=== PATIENT | male | born 1995 | race Hispanic/Latino ===

== ENCOUNTER → 2023-05-18 | Emergency (ER) | payer BC ==
[~2023-05-18] MED LIST: FAMOTIDINE 20 MG/2 ML VIAL IV ONE; MAGNES/ALUMIN/SIMET 30ML UCUP ONE; NA CHLORIDE 0.9% 1,000 ML ONE
--- OUTSIDE RECORDS SUMMARY | 2023-05-18 01:05 | XMS REPORT | Continuity of Care Document ---
Author Name Unknown Address [address] [facility] [address] [place] [address] [facility] Address [address] [facility] [place] [address] Care Team Providers Care Airline Dispatcher Name Role Phone Doctor Unassigned, [place] Attending Clinician U [facility] Attending Clinician Unavailable Allergies, Adverse Reactions, Alerts Allergy Name Allergy Type Status Severity Reaction(s) Onset Date Inactive Date Treating Clinician Comments Source NO KNOWN ALLERGIE S Drug Class Active [facility] Social History Social Habit Start Date Stop Date Quantity Comments Source Sexual orientation U [facility] Exposure to SARS-CoV-2 (event) 2019-11-12 00:00:00 2019-12-12 08:56:00 Not sure [facility] Sex Assigned At 1995 00:00:00 1995 00:00:00 [facility] Smoking Status Start Date Stop Date Source Tobacco smoking consumption unknown [facility] Medications Ordered Medication Name Filled Medication Name Start Date Stop Date Current Medication? Ordering Clinician Indication Dosage Frequency Signature (SIG) Comments Components Source MOTRIN 600 MG ORAL TAB 12-28 00:00: 00 Yes Take 1 tablet four times daily for fever and pain. [facility] AMOXICILLIN -POT CLAVULANATE 500-125 MG ORAL TAB 12-28 00:00: 00 Yes Take one tablet every eight hours for ten days [facility] Encounters Start Date/Time End Date/Time Encounter Type Admission Type Attending Clinicians Care Facility Care Department Encounter ID Source 2019-12-13 00:00:00 2019-12-13 00:00:00 Patient Secure Msg Doctor Unassigned, [place] [facility] [id number] [facility] 2019-12-12 08:40:00 2019-12-12 08:40:00 Outpatient [facility] [id number] [facility]
[2023-05-18 02:16] LABS: Absolute Lymphocytes (CBC) 0.8 K/uL (0.7-4.9); Hematocrit 44.3 % (39.6-49.0); Lymphocytes % 8.9 % (15.3-44.8); MCV 83.5 fL (80-100); MPV 8.5 fL (7.6-11.3); Platelets 288 thou/uL (152-406)
[2023-05-18 02:33] LABS: Albumin 3.6 g/dL (3.4-5.0); Bilirubin Total 0.5 mg/dL (0.2-1.0); Potassium 3.4 mEq/L (3.5-5.1); Protein, Total 8.2 g/dL (6.4-8.2); Troponin High Sensitivity 4.1 pg/mL (<58.9)
--- NOTE | 2023-05-18 04:45 | EDPHYS ---
Physician Documentation [facility] Name: Darnell Brennan Age: 28 yrs Sex: Male : 1995 Arrival Date: 05/18/2023 Time: 01:02 Bed 4 Private MD: ED Physician Darren Aly HPI: 05/18 01:33 This 28 yrs old Male presents to ER via Unassigned with complaints of UPPER sp4 LEFT SIDE PAIN, Back Pain. 01:39 Pt is a 28 year old male who presents for left upper abd/lower chest pain that started kb at 2100 today. States he has had this pain several times in the past, normally after eating something bad for him, but it normally goes away after 2 hours or so. This pain is the same, but lasting longer than normal. Also reports he feels like the left upper abd swelling at times after eating. Denies n/v/d/f. Historical: - Allergies: 01:43 No Known Allergies; jb4 - PMHx: 01:43 None; jb4 - PSHx: 01:43 None; jb4 - Immunization history:: Adult Immunizations up to date. - Social history:: Smoking status: Patient denies any tobacco usage or history of. Patient uses alcohol, occasionally. - Family history:: not pertinent. ROS: 01:38 Constitutional: Negative for fever, chills, and weight loss, kb 01:38 Cardiovascular: Positive for chest pain, 01:38 Abdomen/GI: Positive for abdominal pain, 01:38 All other systems are negative, Exam: 01:38 Constitutional: This is a well developed, well nourished patient who is awake, alert, kb and in no acute distress. Head/Face: Normocephalic, atraumatic. ENT: Moist Mucous membranes Cardiovascular: Regular rate Respiratory: Respirations even and unlabored. No increased work of breathing. Talking in full sentences Skin: Warm, dry with normal turgor. Normal color. MS/ Extremity: Pulses equal, no cyanosis. Neurovascular intact. Full, normal range of motion. Neuro: Awake and alert, GCS 15, oriented to person, place, time, and situation. Moves all extremities. Normal gait. 01:38 Abdomen/GI: Inspection: abdomen appears normal, Bowel sounds: normal, Palpation: soft, in all quadrants, mild abdominal tenderness, in the left upper quadrant, 02:11 ECG was reviewed by the Attending Physician. EKG time 0 144 sp4 04:37 Eyes: Pupils equal round and reactive to light, extra-ocular motions intact. Lids and sp4 lashes normal. Conjunctiva and sclera are not injected. Cornea within normal limits. Periorbital areas with no swelling, redness, or edema. Neck: Trachea midline, no thyromegaly or masses palpated, and no cervical lymphadenopathy. Supple, full range of motion without nuchal rigidity, or vertebral point tenderness. Chest/axilla: Normal chest wall appearance and motion. Nontender with no deformity. No lesions are appreciated. Abdomen/GI: Soft, non-tender, with normal bowel sounds. No distension or tympany. No guarding or rebound. No evidence of tenderness throughout. Back: No spinal tenderness. No costovertebral tenderness. Psych: Awake, alert, with orientation to person, place and time. Behavior, mood, and affect are within normal limits Vital Signs: 01:39 BP 146 / 92; Pulse 100; Resp 16; Temp 98.2(O); Pulse Ox 99% on R/A; Weight 122.47 kg jb4 (R); Height 5 ft. 9 in. ; Pain 6/10; 02:15 BP 138 / 77; Pulse 78; Resp 17; Pulse Ox 98% on R/A; rv 05:02 BP 118 / 75; Pulse 73; Resp 17; Temp 98; Pulse Ox 99% on R/A; rv 01:39 Body Mass Index 39.87 (122.47 kg, 175.26 cm) jb4 01:39 Pain Scale: Adult jb4 Sandra Coma Score: 04:37 Eye Response: spontaneous(4). Motor Response: obeys commands(6). Verbal Response: sp4 oriented(5). Total: 15. 05:02 Eye Response: spontaneous(4). Motor Response: obeys commands(6). Verbal Response: rv oriented(5). Total: 15. MDM: 01:21 Patient medically screened. kb 01:38 Data reviewed: vital signs, nurses notes. kb 01:38 Differential diagnosis: gastritis, gastroesophageal reflux disease, non-specific abd kb pain, pancreatitis, Peptic Ulcer Disease, abnormal ekg. Transition of care: After a detail discussion of the patient's case, care is transferred to Darren Aly MD. 04:36 ED course: 1. Mild wall thickening of the gallbladder. No calcified gallstones sp4 identified. If there is concern for acute cholecystitis ultrasound could provide additional characterization. 2. Hepatomegaly and hepatic steatosis. 3. Mildly prominent mesenteric lymph nodes. These findings could be seen with nonspecific mesenteritis/enteritis.. 04:43 Differential diagnosis: Gastritis, Pancreatitis , cholecystitis. Consideration of sp4 Admission/Observation Escalation of care including admission/observation considered. ED course: Will be referred to Dr. Aleida riggs emergently for evaluation of the gallbladder. Will prescribe omeprazole daily. 05/18 01:26 Order name: CBC with Diff; Complete Time: 02:59 kb 05/18 01:26 Order name: CMP; Complete Time: 02:59 kb 05/18 01:26 Order name: Lipase; Complete Time: 02:59 kb 05/18 01:26 Order name: Troponin HS; Complete Time: 02:59 kb 05/18 01:26 Order name: XRAY Chest (1 view) kb 05/18 01:33 Order name: CT Chest, Abdomen, Pelvis - W/Contrast sp4 05/18 01:26 Order name: EKG; Complete Time: 01:26 kb 05/18 01:26 Order name: IV Saline Lock; Complete Time: 01:39 kb 05/18 01:26 Order name: Labs collected and sent; Complete Time: 01:39 kb 05/18 01:26 Order name: EKG - Nurse/Tech; Complete Time: 01:39 kb EC:11 Rate is 81 beats/min. Rhythm is regular, Normal Sinus Rhythm. QRS [address] is Normal. [place] sp4 interval is normal. QRS interval is normal. QT interval is normal. No Q waves. T waves are Normal. No ST changes noted. Clinical impression: Normal ECG. Interpreted by me. Reviewed by me. Administered Medications: 01:50 Drug: NS 0.9% IV 1000 ml IV at 1 bolus Per protocol; 1000 mL bolus Route: IV; Rate: 1 rv bolus; Site: right forearm; 05:03 Follow up: IV Status: Completed infusion; IV Intake: 1000ml rv 01:50 Drug: Famotidine IVP 20 mg IVP once; dilute with 10 mL 0.9% NaCl; give over 2 minutes rv Route: IVP; Site: right forearm; 05:03 Follow up: Response: No adverse reaction rv 01:50 Drug: GI Cocktail without - (Maalox PO 30 ml, Lidocaine Mucous Membrane 2 % 15 rv ml) PO once Route: PO; 05:03 Follow up: Response: No adverse reaction rv Disposition: 02:05 Co-signature as Attending Physician, Darren Aly MD I agree with the assessment sp4 and plan of care. I reviewed the patient's care provided by Advanced Practice Provider \T\ agree w/ the diagnosis \T\ care plan. I personally saw the pt \T\ performed a substantive portion of the visit, incldng all aspects of the (History/Exam/Medical Decision Making). Disposition Summary: 05/18/23 04:45 Discharge Ordered Problem: new sp4 Symptoms: have improved sp4 Condition: Stable sp4 Diagnosis - Upper abdominal pain, unspecified sp4 - Postprandial abdominal pain, left upper quadrant abdominal pain sp4 - acute gastritis sp4 Followup: sp4 - With: Bhavik Shin MD - When: 7 - 10 days - Reason: Recheck today's complaints Discharge Instructions: - Discharge Summary Sheet sp4 - Gastritis, Adult, [id number] sp4 Forms: - Patient Portal Instructions sp4 Prescriptions: - omeprazole 40 mg Oral capsule,delayed release (e.c.) - take 1 capsule ORAL route every morning; 30 capsule; Refills: 0, Product sp4 Selection Permitted Signatures: Dispatcher [employer] Magdalena Toribio FNP-C FNP-Andrew Vieira RN RN jb4 Jason Bey RN RN rv Potepalov, Sergey, MD MD sp4
--- NOTE | 2023-05-18 04:45 | ER ---
Nurse's Notes [facility] Name: Darnell Brennan Age: 28 yrs Sex: Male : 1995 Arrival Date: 05/18/2023 Time: 01:02 Bed 4 Private MD: Diagnosis: Upper abdominal pain, unspecified;Postprandial abdominal pain, left upper quadrant abdominal pain;acute gastritis Presentation: 05/18 01:39 Chief complaint: Patient states: I am having LUQ pain. [facility] ep[facility]astric [facility] and I always figured it was just heart burn and it goes away in a couple of hours. Tonight it has not gone away. Coronavirus screen: At this time, the client does not indicate any symptoms associated with coronavirus-19. Ebola Screen: No symptoms or risks identified at this time. Initial Sepsis Screen: Does the patient meet any 2 criteria? No. Patient's initial sepsis screen is negative. Does the patient have a suspected source of infection? No. Patient's initial sepsis screen is negative. Risk Assessment: Do you want to hurt yourself or someone else? Patient reports no desire to harm self or others. Onset of symptoms was May 18, 2023. Transition of care: patient was not received from another setting of care. 01:39 Method Of Arrival: [facility] 01:39 Acuity: DALE 3 jb4 Historical: - Allergies: 01:43 No Known Allergies; jb4 - PMHx: 01:43 None; jb4 - PSHx: 01:43 None; jb4 - Immunization history:: Adult Immunizations up to date. - Social history:: Smoking status: Patient denies any tobacco usage or history of. Patient uses alcohol, occasionally. - Family history:: not pertinent. Screenin:51 [facility] ED Fall Risk Assessment (Adult) History of falling in the last 3 months, rv including since admission No falls in past 3 months (0 pts) Score/Fall Risk Level 0 - 2 = Low Risk Oriented to surroundings, Maintained a safe environment, Educated pt \T\ family on fall prevention, incl call for assistance when getting out of bed, Assessed \T\ reinforced patient's understanding of fall precautions. Abuse screen: Denies threats or abuse. Denies injuries from another. Nutritional screening: No deficits noted. Tuberculosis screening: No symptoms or risk factors identified. Assessment: 01:51 General: Appears comfortable, Behavior is calm, cooperative. Pain: Complains of pain in rv left upper quadrant. Neuro: Level of Consciousness is awake, alert, obeys commands, Oriented to person, place, time, situation. Cardiovascular: Capillary refill < 3 seconds Patient's skin is warm and dry. Respiratory: Airway is patent Respiratory effort is even, unlabored, Breath sounds are clear bilaterally. GI: Abdomen is round non-distended. : No signs and/or symptoms were reported regarding the genitourinary system. Derm: Skin is intact. Vital Signs: 01:39 BP 146 / 92; Pulse 100; Resp 16; Temp 98.2(O); Pulse Ox 99% on R/A; Weight 122.47 kg jb4 (R); Height 5 ft. 9 in. ; Pain 6/10; 02:15 BP 138 / 77; Pulse 78; Resp 17; Pulse Ox 98% on R/A; rv 05:02 BP 118 / 75; Pulse 73; Resp 17; Temp 98; Pulse Ox 99% on R/A; rv 01:39 Body Mass Index 39.87 (122.47 kg, 175.26 cm) jb4 01:39 Pain Scale: Adult jb4 Sandra Coma Score: 04:37 Eye Response: spontaneous(4). Motor Response: obeys commands(6). Verbal Response: sp4 oriented(5). Total: 15. 05:02 Eye Response: spontaneous(4). Motor Response: obeys commands(6). Verbal Response: rv oriented(5). Total: 15. ED Course: 01:12 Patient arrived in ED. jj6 01:20 Magdalena Porras FNP-C is PHCP. kb 01:20 Darren Aly MD is Attending Physician. kb 01:35 Jason Bey RN is Primary Nurse. rv 01:43 Triage completed. jb4 01:43 Arm band placed on right wrist. jb4 01:50 XRAY Chest (1 view) In Process Unspecified. EDMS 01:51 Patient has correct armband on for positive identification. Client placed on continuous rv cardiac and pulse oximetry monitoring. NIBP monitoring applied. library monitor on. 01:51 No provider procedures requiring assistance completed. Inserted saline lock: 20 gauge rv in right forearm, using aseptic technique. Blood collected. 03:00 CT Chest, Abdomen, Pelvis - W/Contrast In Process Unspecified. EDMS 04:44 Bhavik Shin MD is Referral Physician. sp4 05:03 IV discontinued, intact, bleeding controlled, No redness/swelling at site. Pressure rv dressing applied. Administered Medications: 01:50 Drug: NS 0.9% IV 1000 ml IV at 1 bolus Per protocol; 1000 mL bolus Route: IV; Rate: 1 rv bolus; Site: right forearm; 05:03 Follow up: IV Status: Completed infusion; IV Intake: 1000ml rv 01:50 Drug: Famotidine IVP 20 mg IVP once; dilute with 10 mL 0.9% NaCl; give over 2 minutes rv Route: IVP; Site: right forearm; 05:03 Follow up: Response: No adverse reaction rv 01:50 Drug: GI Cocktail without - (Maalox PO 30 ml, Lidocaine Mucous Membrane 2 % 15 rv ml) PO once Route: PO; 05:03 Follow up: Response: No adverse reaction rv Medication: 01:51 VIS not applicable for this client. rv Intake: 05:03 IV: 1000ml; Total: 1000ml. rv Outcome: 04:45 Discharge ordered by MD. sp4 05:03 Discharged to home ambulatory, rv 05:03 Condition: good 05:03 Discharge instructions given to patient, Instructed on discharge instructions, follow up and referral plans. medication usage, Demonstrated understanding of instructions, follow-up care, medications, Prescriptions given X 1, 05:03 Patient left the ED. rv Signatures: Dispatcher [employer] EDNY Magdalena Porras, SUPPLY ROOM CLERK-C SUPPLY ROOM CLERK-Ckb Andrew Francois, RN RN jb4 Jason Bey, RN RN rv Ritu Lewis jj6 Darren Aly MD MD sp4
--- NOTE | 2023-05-18 11:51 | RAD REPORT ---
EXAM DESCRIPTION: CT - Chest Abdomen Pelvis W Cont - 05/18/2023 6:15 am CLINICAL HISTORY: CHEST PAIN COMPARISON: None Available. TECHNIQUE: CT of the chest, abdomen and pelvis performed following IV administration of iodinated co ntrast. This exam was performed according to our departmental dose-optimization program, which includ es automated exposure control, adjustment of the mA and/or kV according to patient size and/or use of iterative reconstruction technique. FINDINGS: Chest: Thyroid: No abnormalities of the visualized thyroid. Great Vessels: Great vessels have normal anatomic configuration. Thoracic Aorta: No abnormalities of the thoracic aorta identified. Pulmonary arteries: No central filling defects. Heart: No cardiomegaly, significant pericardial effusion, or coronary artery atherosclerosis Lymph Nodes: No enlarged mediastinal lymph nodes identified. Esophagus: No abnormalities of the esophagus identified Other: No additional findings. Lungs: No airspace opacities identified. Mild respiratory motion artifact. Mild elevation right hemid iaphragm. Pleura: No pleural effusion or pneumothorax. Trachea/Airways: No abnormalities of the visualized trachea or airways. Abdomen: Liver: Hepatomegaly and diffusely decreased density. Gallbladder: No calcified gallstones. Mild wall thickening of the gallbladder. Spleen, Pancreas, and Adrenal Glands: The spleen, pancreas, and adrenal glands are unremarkable. Kidneys: The kidneys have normal size and contour without evidence of solid mass or hydronephrosis. Vasculature: The aorta and IVC have normal caliber and position. The portal vein is patent. The pro ximal visceral and renal arteries are patent. Stomach: The stomach and duodenum have normal course. Other: No free intraperitoneal air. Mildly prominent mesenteric lymph nodes. Pelvis: Bladder: Urinary bladder is unremarkable. Bowel: No dilated loops of large or small bowel. Appendix: Normal appendix. Pelvis: Prostate is not enlarged. Bones: Multilevel degenerative change of the spine. IMPRESSION: 1. Mild wall thickening of the gallbladder. No calcified gallstones identified. If the re is concern for acute cholecystitis ultrasound could provide additional characterization. 2. Hepatomegaly and hepatic steatosis. 3. Mildly prominent mesenteric lymph nodes. These findings could be seen with nonspecific mesenteri tis/enteritis. Electronically signed by: Charly Salazar DO 05/18/2023 03:42 AM TICKET CLERK M Due to temporary technical issues with the PACS/Fluency reporting system, reports are being signed by the in house radiologists without review as a courtesy to insure prompt reporting. The interpreting radiologist is fully responsible for the content of the report.
--- NOTE | 2023-05-18 12:54 | EKG ---
Test Date: 2023-05-18 Test Time: 01:44:44 Crystallizer Operator: RV MEASUREMENT RESULTS: Intervals: Rate: 81 TX: 138 QRSD: 88 QT: 372 QTc: 432 [place]: P: 14 TX: 138 QRS: 80 T: 30 INTERPRETIVE STATEMENTS: Normal sinus rhythm Normal ECG No previous ECG available for comparison Electronically Signed On 05-18-23 12:52:24 POLYSOMNOGRAPHER by Floyd Barragan
--- NOTE | 2023-05-18 14:33 | RAD REPORT ---
EXAM DESCRIPTION: RAD - Chest Single View - 05/18/2023 1:49 am CLINICAL HISTORY: The patient is 28 years old and is Male; CHEST PAIN TECHNIQUE: Frontal view of the chest. COMPARISON: No relevant prior studies available. FINDINGS: LUNGS: There are low lung volumes. The lungs are clear. No consolidation. PLEURAL SPACE: Unremarkable. No pneumothorax. HEART: Unremarkable. No cardiomegaly. MEDIASTINUM: Unremarkable. Normal mediastinal contour. BONES/JOINTS: Unremarkable. No acute fracture. UPPER ABDOMEN: Unremarkable as visualized. IMPRESSION: No acute cardiopulmonary process. Electronically signed by: Sophia Obregon MD 05/18/2023 02:19 AM TRAFFIC ENGINEER Due to temporary technical issues with the PACS/Fluency reporting system, reports are being signed by the in house radiologists without review as a courtesy to insure prompt reporting. The interpreting radiologist is fully responsible for the content of the report.
[2023-05-19 10:00] VITALS: BP 118/75; TEMP 98; O2SAT 99
== END ==
LOC: ER 01:02
DX: K29.70 Gastritis, unspecified, without bleeding (principal)
CPT/HCPCS: 93005; 85025; 36415; 84484; 83690; 80053; 71260; 74177; 71045; Q9967; J7030

== ENCOUNTER 2024-05-01 07:44 | Inpatient (IN) | payer BC ==
[2024-05-01] MEDS ORDERED: FAMOTIDINE 20 MG/2 ML VIAL IV ONE (07:51)
[2024-05-01] MEDS ORDERED: ONDANSETRON 4 MG/2 ML VIAL ONE (07:51)
[2024-05-01] MEDS ORDERED: NA CHLORIDE 0.9% 1,000 ML ONE (07:52)
[2024-05-01 08:08] LABS: Absolute Lymphocytes (CBC) 1.5 K/uL (0.7-4.9); Absolute Monocytes 0.4 K/uL (0.1-1.3); Absolute Neutrophil 9.2 K/uL (1.8-8.0); Basophils % 0.4 % (0-1.3); Eosinophils % 0.1 % (0-4.4); Hematocrit 45.5 % (39.6-49.0); Hemoglobin 15.3 g/dL (13.6-17.9); Lymphocytes % 13.5 % (15.3-44.8); MCH 28.1 pg (27.0-35.0); MCHC 33.7 g/dL (32.0-36.0); MCV 83.3 fL (80-100); MPV 8.4 fL (7.6-11.3); Monocytes % 3.7 % (3.3-12.3); Neutrophils % 82.3 % (41.7-73.7); Nucleated Red Blood Cells % 0.1 % (0-0); Platelets 350 thou/uL (152-406); RBC Red Blood Cell Count 5.47 M/uL (4.33-5.43); Red Cell Distribution Width 13.5 % (12.1-15.2)
[2024-05-01 08:21] LABS: Albumin 3.9 g/dL (3.4-5.0); Albumin/Globulin Ratio 0.8 (1.1-1.8); Anion Gap 7.4 mEq/L (5.0-15.0); Bilirubin Total 0.4 mg/dL (0.2-1.0); Globulin 4.9 g/dL (2.3-3.5); Potassium 3.4 mEq/L (3.5-5.1); Protein, Total 8.8 g/dL (6.4-8.2)
[2024-05-01] MEDS ORDERED: MAGNES/ALUMIN/SIMET 30ML UCUP ONE (08:27)
[2024-05-01] MEDS ORDERED: LIDOCAINE VISCOUS 2% 10ML ORAL SOLN ONE (08:27)
--- NOTE | 2024-05-01 08:42 | RAD REPORT ---
EXAM: Right upper quadrant ultrasound. CLINICAL HISTORY: ABD PAIN COMPARISON: None. FINDINGS: Gallbladder: Extensive sludge and stones. Prominent stone is seen in the gallbladder neck. Bile ducts: No intrahepatic or extrahepatic biliary dilatation. Common bile duct measures 5 mm. Limited imaging of the liver shows no concerning finding. IMPRESSION: Extensive gallbladder sludge and stones is present.
[2024-05-01] MEDS ORDERED: NA CHLORIDE 0.9% 100 ML ONE (08:49)
[2024-05-01] MEDS ORDERED: MORPHINE 4 MG/ML SYR ONE (08:49)
[2024-05-01] MEDS ORDERED: PIPERACIL/TAZO 3.375 GM VIAL IV ONE (08:50)
--- NOTE | 2024-05-01 08:54 | ER ---
Nurse's Notes [facility] Name: Darnell Brennan Age: 29 yrs Sex: Male : 1995 Arrival Date: 05/01/2024 Time: 07:44 Bed 6 Private MD: Diagnosis: Abdominal pain, unspecified;Other cholelithiasis without obstruction Presentation: 05/01 07:47 Chief complaint: Patient states: N/V and abd pain that began last night. Pt states, "I ss have gallbladder issues, but it usually goes away.". Coronavirus screen: Client denies travel out of the [place] in the last 14 days. Ebola Screen: Patient denies exposure to infectious person. Patient denies travel to an Ebola-affected area in the 21 days before illness onset. Initial Sepsis Screen: Does the patient meet any 2 criteria? No. Patient's initial sepsis screen is negative. Does the patient have a suspected source of infection? No. Patient's initial sepsis screen is negative. Risk Assessment: Do you want to hurt yourself or someone else? Patient reports no desire to harm self or others. Onset of symptoms was April 30, 2024. 07:47 Method Of Arrival: Ambulatory ss 07:47 Acuity: DALE 3 ss Historical: - Allergies: 07:54 No Known Allergies; ss - Home Meds: 07:54 None [Active]; ss - PMHx: 07:54 hypertension; ss 07:55 "gallbladder issues"; ss - PSHx: 07:54 None; ss - Immunization history:: Client reports receiving the 2nd dose of the Covid vaccine. - Infectious Disease History:: Denies. - Social history:: Smoking status: Patient denies any tobacco usage or history of. - Family history:: not pertinent. - Hospitalizations: : No recent hospitalization is reported. Screenin:01 [facility] ED Fall Risk Assessment (Adult) History of falling in the last 3 months, iw including since admission No falls in past 3 months (0 pts) Confusion or Disorientation No (0 pts) Intoxicated or Sedated No (0 pts) Impaired Gait No (0 pts) Mobility Assist Device Used No (0 pt) Altered Elimination No (0 pt) Score/Fall Risk Level 0 - 2 = Low Risk Oriented to surroundings, Maintained a safe environment. Abuse screen: Denies threats or abuse. Denies injuries from another. Nutritional screening: No deficits noted. Tuberculosis screening: No symptoms or risk factors identified. Assessment: 08:00 General: Appears in no apparent distress. Behavior is calm, cooperative. Pain: iw Complains of pain in epigastric area Pain radiates to left upper quadrant Pain currently is 10 out of 10 on a pain scale. Neuro: Level of Consciousness is awake, alert, obeys commands, Oriented to person, place, time, situation, Moves all extremities. Full function. Cardiovascular: Patient's skin is warm and dry. Respiratory: Respiratory effort is even, unlabored, Respiratory pattern is regular. GI: Abd is soft X 4 quads Reports upper abdominal pain, nausea. Derm: Skin is intact, is healthy with good turgor. Musculoskeletal: Range of motion: intact in all extremities. 08:29 Reassessment: Patient appears in no apparent distress at this time. Patient and/or iw family updated on plan of care and expected duration. Pain level reassessed. Patient is alert, oriented x 3, equal unlabored respirations, skin warm/dry/pink. Vital Signs: 07:47 BP 173 / 109; Pulse 75; Resp 17; Temp 97.7(O); Pulse Ox 100% on R/A; Weight 113.4 kg; ss Height 5 ft. 9 in. ; Pain 9/10; 08:29 BP 164 / 106; Pulse 69; Resp 16; Pulse Ox 99% on R/A; iw 08:58 BP 150 / 85; Pulse 68; Resp 16; Pulse Ox 100% on R/A; Pain 9/10; iw 07:47 Body Mass Index 36.92 (113.40 kg, 175.26 cm) ss 07:47 Pain Scale: Adult ss 08:58 Pain Scale: Adult iw ED Course: 07:47 Patient arrived in ED. im 07:47 Bijan Kent MD is Attending Physician. rn 07:48 Shreya Kramer RN is Primary Nurse. iw 07:54 Triage completed. ss 07:55 Arm band placed on right wrist. ss 08:01 Initial lab(s) drawn, by me, sent to lab. Inserted saline lock: 20 gauge in right iw antecubital area, using aseptic technique. Blood collected. Flushed with 10 mL NS. 08:16 US Abdomen Limited In Process Unspecified. EDMS 08:53 Stephenie Chowdhury MD is Hospitalizing Provider. rn 09:12 Patient has correct armband on for positive identification. Provided Education on: need iw for admission. Client placed on continuous cardiac and pulse oximetry monitoring. NIBP monitoring applied. 11:09 No provider procedures requiring assistance completed. Patient admitted, IV remains in iw place. Administered Medications: 08:01 Drug: Famotidine IVP 20 mg IVP once; dilute with 10 mL 0.9% NaCl; give over 2 minutes iw Route: IVP; Site: right antecubital; 09:05 Follow up: Response: No adverse reaction; Pain is unchanged, physician notified iw 08:02 Drug: Ondansetron IVP 4 mg IVP once; over 2 minutes Route: IVP; Site: right antecubital;iw 09:23 Follow up: Response: No adverse reaction iw 08:29 Drug: GI Cocktail without - (Maalox PO 30 ml, Lidocaine Mucous Membrane 2 % 15 iw ml) PO once Route: PO; 09:30 Follow up: Response: No adverse reaction; Pain is unchanged, physician notified iw 08:58 Drug: morphine IVP or IV 4 mg IVP once over 4 mins Route: IVP; Infused Over: 4 mins; iw Site: right antecubital; 09:40 Follow up: Response: No adverse reaction; Pain is unchanged, physician notified iw 08:58 Drug: Piperacillin-Tazobactam IVPB 3.375 grams IVPB once over 60 mins; (mix in NS 100 iw mL) Route: IVPB; Infused Over: 60 mins; Site: right antecubital; 09:30 Follow up: IV Status: Completed infusion iw 09:43 Drug: HYDROmorphone IVP 1 mg IVP once Route: IVP; Site: right antecubital; iw 10:30 Follow up: Response: No adverse reaction; Pain is decreased iw Medication: 08:01 VIS not applicable for this client. iw Outcome: 08:54 Decision to Hospitalize by Provider. rn 11:09 Admitted to Med/surg accompanied by tech, via wheelchair, room 222, iw 11:09 Condition: good 11:09 Discharge instructions given to patient, Instructed on the need for admit, Demonstrated understanding of instructions, 11:10 Patient left the ED. iw Signatures: Dispatcher [employer] EDShreya Carrizales RN Bijan Holcomb MD MD rn Blanchard, [place], Namrata Peraza RN Corrections: (The following items were deleted from the chart) 07:55 07:54 PMHx: None; [facility]
--- NOTE | 2024-05-01 08:54 | EDPHYS ---
Physician Documentation [facility] Name: Darnell Brennan Age: 29 yrs Sex: Male : 1995 Arrival Date: 05/01/2024 Time: 07:44 Bed 6 Private MD: ED Physician Bijan Kent HPI: 05/01 08:07 This 29 yrs old Male presents to ER via Ambulatory with complaints of rn Abdominal Pain, Nausea/Vomiting. 08:07 The patient presents to the emergency department with nausea, vomiting, abdominal pain. rn Onset: The symptoms/episode began/occurred last night. Possible causes: unknown. The symptoms are aggravated by food , The symptoms are alleviated by nothing. Severity of symptoms: At their worst the symptoms were moderate in the emergency department the symptoms are unchanged. The patient has experienced similar episodes in the past. Patient reports epigastric abdominal pain associated with nausea and vomiting that began last night. Had Murray's yesterday. Reports gets this pain at least once a month and has had acid problems in the past. No fever or chills. No cough or shortness of breath. Told in the past that his gallbladder was "abnormal" but never followed up. Denies blood in stool or hematemesis.. Historical: - Allergies: 07:54 No Known Allergies; ss - Home Meds: 07:54 None [Active]; ss - PMHx: 07:54 hypertension; ss 07:55 "gallbladder issues"; ss - PSHx: 07:54 None; ss - Immunization history:: Client reports receiving the 2nd dose of the Covid vaccine. - Infectious Disease History:: Denies. - Social history:: Smoking status: Patient denies any tobacco usage or history of. - Family history:: not pertinent. - Hospitalizations: : No recent hospitalization is reported. ROS: 08:07 Constitutional: Negative for fever, chills, and weight loss, Cardiovascular: Negative rn for chest pain, palpitations, and edema, Respiratory: Negative for shortness of breath, cough, wheezing, and pleuritic chest pain, Abdomen/GI: Positive for nausea and vomiting with upper abdominal pain Back: Negative for injury and pain, MS/Extremity: Negative for injury and deformity, Skin: Negative for injury, rash, and discoloration, Neuro: Negative for headache, weakness, numbness, tingling, and seizure, Exam: 08:07 Constitutional: This is a well developed, well nourished patient who is awake, alert, rn and in no acute distress. Cardiovascular: Regular rate and rhythm. No pulse deficits. Respiratory: No increased work of breathing, no retractions or nasal flaring. Abdomen/GI: Soft, mild epigastric tenderness. No rebound or guarding. Negative Preston Vital Signs: 07:47 BP 173 / 109; Pulse 75; Resp 17; Temp 97.7(O); Pulse Ox 100% on R/A; Weight 113.4 kg; ss Height 5 ft. 9 in. ; Pain 9/10; 08:29 BP 164 / 106; Pulse 69; Resp 16; Pulse Ox 99% on R/A; iw 08:58 BP 150 / 85; Pulse 68; Resp 16; Pulse Ox 100% on R/A; Pain 9/10; iw 07:47 Body Mass Index 36.92 (113.40 kg, 175.26 cm) ss 07:47 Pain Scale: Adult ss 08:58 Pain Scale: Adult iw MDM: 07:47 Medical Screening Exam initiated rn 08:50 Differential diagnosis: Nonspecific abd pain, gastritis, cholecystitis, pancreatitis, rn viral gastroenteritis, gastroenteritis. Data reviewed: vital signs, nurses notes, lab test result(s), radiologic studies, ultrasound, and as a result, I will admit patient. Consideration of Admission/Observation Patient was admitted/placed on observation. Escalation of care including admission/observation considered. Counseling: I had a detailed discussion with the patient and/or guardian regarding the historical points, exam findings, and any diagnostic results supporting the discharge/admit diagnosis, lab results, radiology results, the need for further work-up and treatment in the hospital. Response to treatment: There is no appreciated change of the patient's symptoms at this time, and as a result, I will admit patient. ED course: Patient with cholelithiasis and sludge, no evidence of cholecystitis at this time but has elevated WBC and stone stuck in the neck. Normal LFTs and lipase. No indication for emergent GI intervention at this time. Called and left message to Dr. Ray. Will admit with antibiotics, n.p.o. and likely cholecystectomy.. 05/01 07:47 Order name: CBC with Diff; Complete Time: 08:14 rn 05/01 07:47 Order name: CMP; Complete Time: 08:21 rn 05/01 07:47 Order name: Lipase; Complete Time: 08:21 rn 05/01 09:34 Order name: Urinalysis w/ reflexes EDMS 05/01 09:34 Order name: CBC with Automated Diff EDMS 05/01 09:34 Order name: CBC with Automated Diff EDMS 05/01 09:34 Order name: Comprehensive Metabolic Panel EDMS 05/01 09:34 Order name: Comprehensive Metabolic Panel EDMS 05/01 09:34 Order name: Magnesium EDMS 05/01 09:34 Order name: Magnesium EDMS 05/01 08:00 Order name: US Abdomen Limited; Complete Time: 08:43 rn 05/01 09:32 Order name: CONS Physician Consult EDMS 05/01 07:47 Order name: IV Saline Lock; Complete Time: 08:01 rn 05/01 07:47 Order name: Labs collected and sent; Complete Time: 08:01 rn 05/01 08:43 Order name: NPO; Complete Time: 08:58 rn Administered Medications: 08:01 Drug: Famotidine IVP 20 mg IVP once; dilute with 10 mL 0.9% NaCl; give over 2 minutes iw Route: IVP; Site: right antecubital; 09:05 Follow up: Response: No adverse reaction; Pain is unchanged, physician notified iw 08:02 Drug: Ondansetron IVP 4 mg IVP once; over 2 minutes Route: IVP; Site: right antecubital;iw 09:23 Follow up: Response: No adverse reaction iw 08:29 Drug: GI Cocktail without - (Maalox PO 30 ml, Lidocaine Mucous Membrane 2 % 15 iw ml) PO once Route: PO; 09:30 Follow up: Response: No adverse reaction; Pain is unchanged, physician notified iw 08:58 Drug: morphine IVP or IV 4 mg IVP once over 4 mins Route: IVP; Infused Over: 4 mins; iw Site: right antecubital; 09:40 Follow up: Response: No adverse reaction; Pain is unchanged, physician notified iw 08:58 Drug: Piperacillin-Tazobactam IVPB 3.375 grams IVPB once over 60 mins; (mix in NS 100 iw mL) Route: IVPB; Infused Over: 60 mins; Site: right antecubital; 09:30 Follow up: IV Status: Completed infusion iw 09:43 Drug: HYDROmorphone IVP 1 mg IVP once Route: IVP; Site: right antecubital; iw 10:30 Follow up: Response: No adverse reaction; Pain is decreased iw Disposition Summary: 05/01/24 08:54 Hospitalization Ordered Notes: Hospitalization Status: Inpatient Admission rn Provider: Stephenie Chowdhury rn [facility] rn Condition: Stable rn Problem: new rn Symptoms: have improved rn Bed/Room Type: Standard rn Room Assignment: 222(05/01/24 10:24) bd Diagnosis - Abdominal pain, unspecified rn - Other cholelithiasis without obstruction rn Forms: - Medication Reconciliation Form rn - SBAR form rn - Leadership Thank You Letter rn Signatures: Dispatcher [employer] Lauren Govea Irene, RN RN iw Bijan Kent MD MD rn Blanchard, [place], RN RN ss Corrections: (The following items were deleted from the chart) 07:55 07:54 PMHx: None; ss ss 10:24 08:54 rn bd
[2024-05-01] MEDS ORDERED: ONDANSETRON 4 MG/2 ML VIAL IV PRN (09:30)
--- NOTE | 2024-05-01 09:33 | P.HP ---
Certification for Inpatient Patient admitted to: Observation <Vanadna Castellanos - Last Filed: 05/01/24 11:47> Patient History Date of Service: 05/01/24 Reason for admission: Cholelithiasis History of Present Illness: 29-year-old male with no significant past medical history, presents to the emergency room with abdominal pain, nausea vomiting. He reported symptoms got worse last night after eating [employer]. He reports symptoms worse with food intake, reports some improvement with IV analgesics. He reports a history of similar symptoms that resolved. He denies fever, chills, ER evaluation blood pressure 173/109, heart rate 75, respirations 17 afebrile, 97% on room air. Epigastric pain is 9 out of 10, abdominal ultrasound Extensive gallbladder sludge and stones is present. Plan to admit for abdominal pain, acute cholelithiasis without obstruction with surgery to consult. - Family History Mother -: Diabetes <EmanuelVandana - Last Filed: 05/01/24 11:47> Date of Service: 05/01/24 <Stephenie Chowdhury - Last Filed: 05/01/24 11:58> Allergies No Known Allergies Allergy (Unverified 05/01/24 09:38) Home Medications: NK [No Home Meds] 05/01/24 Review of Systems 10-point ROS is otherwise unremarkable <UlyssesheathVandana - Last Filed: 05/01/24 11:47> Physical Examination - Physical Exam General: Alert, Oriented x3, Mild distress HEENT: Atraumatic, Normocephalic Neck: Supple, 2+ carotid pulse no bruit Respiratory: Clear to auscultation bilaterally, Normal air movement Cardiovascular: Normal pulses, Regular rate/rhythm, Normal S1 S2 Capillary refill: <2 Seconds Gastrointestinal: Normal bowel sounds, Tenderness (Epigastric) Musculoskeletal: No swelling, No tenderness Integumentary: No breakdown, No significant lesion Neurological: Normal speech, Normal strength at 5/5 x4 extr, Cranial nerves 3-12 intact - Studies Laboratory Data (last 24 hrs) 05/01/24 05/01/24 07:53 07:53 WBC 11.10 H Hgb 15.3 Hct 45.5 Plt Count 350 Sodium 135 L Potassium 3.4 L BUN 9 Creatinine 0.94 Glucose 138 H Total Bilirubin 0.4 AST 18 ALT 34 Alkaline Phosphatase 75 Lipase 21 <EmanuelVandana - Last Filed: 05/01/24 11:47> - Studies Laboratory Data (last 24 hrs) 05/01/24 05/01/24 07:53 07:53 WBC 11.10 H Hgb 15.3 Hct 45.5 Plt Count 350 Sodium 135 L Potassium 3.4 L BUN 9 Creatinine 0.94 Glucose 138 H Total Bilirubin 0.4 AST 18 ALT 34 Alkaline Phosphatase 75 Lipase 21 <Stephenie Chowdhury - Last Filed: 05/01/24 11:58> Assessment and Plan - Problems (Diagnosis) (1) Cholelithiasis without obstruction Current Visit: Yes Status: Acute (2) Nausea & vomiting Current Visit: Yes Status: Acute (3) Abdominal pain Current Visit: Yes Status: Acute Discharge Plan: Home - Advance Directives Does patient have a Living Will: No Does patient have a Durable POA for Healthcare: No - Code Status/Comfort Care Code Status: Full Code Critical Care: No Time Spent Managing Pts Care (In Minutes): 55 <EmanuelVandana - Last Filed: 05/01/24 11:47> Date of Service: 05/01/24 Patient was seen and examined. Events of the last 24 hours have been noted. Spoke with with FEDERICO regarding patient's clinical picture after evaluating and examining the patient independently. I performed a substantial part of the MDM during this patient's care today. I personally made or approved the documented management plan and acknowledge its risk of complications. I agree with the findings and documentation provided in the FEDERICO's notes. Agree with plan of care as mentioned per nurse practitioner note. Patient with no prior medical issues. Has been having symptoms for the last few years. Over the last few days he is not able to eat anything without severe pain. Plan is to keep him n.p.o. for laparoscopic cholecystectomy. Patient with symptomatic cholelithiasis. On physical exam patient also with right upper quadrant tenderness and positive Preston sign; Plan: 1. Patient with surgery consultation for lap michi 2. Continue with IV fluids and IV antibiotics 3. Pain control as necessary 4. Patient low risk for any cardiopulmonary complications in the perioperative period and have recommended to proceed with surgical intervention. <Stephenie Chowdhury - Last Filed: 05/01/24 11:58>
[2024-05-01] MEDS: NA CHLORIDE 0.9% 1,000 ML IV SCH (10:00)
[2024-05-01 11:27] LABS: Specific Gravity 1.022 (1.005-1.030); Sqamous Epithelial <5 /HPF (None Seen); Urine Bacteria None Seen /HPF (<20); Urine Bilirubin NEGATIVE (Negative); Urine Blood Negative (Negative); Urine Clarity Clear (Clear); Urine Color Light-Yellow (Yellow); Urine Culture Reflex Order NOT NEEDED; Urine Glucose NEGATIVE (Negative); Urine Ketones NEGATIVE (Negative); Urine Microscopic Reflex YN ORDER UMIC; Urine Mucus Slight /HPF (None Seen); Urine Nitrite NEGATIVE (Negative); Urine Protein NEGATIVE (Negative); Urine RBC <5 /HPF (None Seen); Urine Urobilinogen Normal (Normal); Urine WBC <5 /HPF (<5)
[2024-05-01] MEDS ORDERED: FLU (Fluarix Triv) TS24-25(6MOS UP)/PF 45 MCG/0.5 ML Syringe IM ONE (11:30)
[2024-05-01] MEDS ORDERED: HYDRALAZINE HCL 20 MG/ML VIAL IV PRN (13:49)
[2024-05-01] MEDS: HYDROMORPHONE HCL 1 MG/ML INJ IV PRN (13:57)
[2024-05-01] MEDS: PIPER TAZO 3.375 GM in NA CHLORIDE 0.9% 100 ML IV SCH (16:34)
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
[2024-05-01] MEDS: PANTOPRAZOLE 40 MG INJ IVP SCH (20:32)
[2024-05-01] MEDS: SODIUM CHLORIDE 0.9% 10ML INJ IV PRN (20:32)
[2024-05-01] MEDS: ALPRAZOLAM 0.25 MG TABLET PO PRN (21:09)
[2024-05-02 04:34] LABS: Absolute Lymphocytes (CBC) 1.8 K/uL (0.7-4.9); Absolute Monocytes 0.6 K/uL (0.1-1.3); Absolute Neutrophil 8.4 K/uL (1.8-8.0); Basophils % 0.3 % (0-1.3); Eosinophils % 0.1 % (0-4.4); Hematocrit 41.8 % (39.6-49.0); Hemoglobin 14.5 g/dL (13.6-17.9); Lymphocytes % 16.9 % (15.3-44.8); MCH 28.3 pg (27.0-35.0); MCHC 34.7 g/dL (32.0-36.0); MCV 81.6 fL (80-100); MPV 8.9 fL (7.6-11.3); Monocytes % 5.7 % (3.3-12.3); Platelets 302 thou/uL (152-406); RBC Red Blood Cell Count 5.12 M/uL (4.33-5.43); Red Cell Distribution Width 13.1 % (12.1-15.2)
[2024-05-02 04:44] LABS: Albumin 3.5 g/dL (3.4-5.0); Albumin/Globulin Ratio 0.8 (1.1-1.8); Anion Gap 7.5 mEq/L (5.0-15.0); Bilirubin Total 0.6 mg/dL (0.2-1.0); Globulin 4.5 g/dL (2.3-3.5); Potassium 3.5 mEq/L (3.5-5.1)
[2024-05-02] MEDS: KCL 20 MEQ/100 mL IVPB 20 MEQ/100 ML BAG IV SCH (07:22)
--- NOTE | 2024-05-02 08:01 | P.PN ---
Date of Service: 05/02/24 subjective Clear liquid diet, n.p.o. after midnight for surgery to eval for acute cholecystitis Pain control with as needed analgesia Review of Systems 10-point ROS is otherwise unremarkable Physical Examination - Physical Exam vital signs Reviewed General: Alert, Oriented x3, afebrile HEENT: Atraumatic, Normocephalic Neck: Supple, 2+ carotid pulse no bruit Respiratory: Clear to auscultation bilaterally, Normal air movement Cardiovascular: Normal pulses, Regular rate/rhythm, Normal S1 S2 Capillary refill: <2 Seconds Gastrointestinal: Normal bowel sounds, right upper quadrant tenderness/(Epigastric) Musculoskeletal: No swelling, No tenderness Integumentary: No breakdown, No significant lesion Neurological: Normal speech, Normal strength at 5/5 x4 extr, Assessment and Plan - Problems (Diagnosis) (1) Cholelithiasis without obstruction Current Visit: Yes Status: Acute (2) Nausea & vomiting Current Visit: Yes Status: Acute (3) Abdominal pain Current Visit: Yes Status: Acute (4)uncontrolled hypertension Current Visit: Yes Status: Acute Discharge Plan: Home Plan: 1. Patient with surgery consultation for lap michi 2. Continue with IV fluids and IV antibiotics 3. Pain control as necessary 4. Patient low risk for any cardiopulmonary complications in the perioperative period and have recommended to proceed with surgical intervention. 5. Cozaar 1 daily for uncontrolled, 20 - Advance Directives Does patient have a Living Will: No Does patient have a Durable POA for Healthcare: No - Code Status/Comfort Care Code Status: Full Code Critical Care: No Time Spent Managing Pts Care (In Minutes): 30
[2024-05-02 14:11] VITALS: BMI 36.8
[2024-05-02] MEDS: LOSARTAN POTASSIUM 50 MG TABLET PO SCH (16:17)
[2024-05-02] MEDS: ACETAMINOPHEN 500 MG TAB PO PRN (16:17)
--- NOTE | 2024-05-02 22:50 | PN ---
Date of Progress Note: 05/02/2024 Diagnoses: Acute cholecystitis, symptomatic cholelithiasis. Objective: Vital Signs: Stable. Chest: Clear. Abdomen: Soft and depressible. Laboratory Data: Blood work reviewed. Plan: Continue with the same plan, laparoscopic possible open cholecystectomy. The benefits, altern atives, and risks fully explained to him once again tonight, n.p.o. after midnight. GLADIS/ASHLEY Voice ID: [id number] Report ID: [id number]
[2024-05-03] MEDS: Ringers Lactate 1,000 ML IV ONE (09:55)
[2024-05-03] MEDS ORDERED: GLYCOPYRROLATE 0.2 MG/ML SYR ONE (11:09)
[2024-05-03] MEDS ORDERED: ROCURONIUM 50 MG/5 ML VIAL IV ONE ×2 (11:09→11:58)
[2024-05-03] MEDS ORDERED: ONDANSETRON 4 MG/2 ML VIAL ONE (11:09)
[2024-05-03] MEDS ORDERED: NEOSTIGMINE 1 MG/ML -10 ML VIAL ONE (11:09)
[2024-05-03] MEDS ORDERED: LIDOCAINE 2% MPF 5 ML VIAL ONE (11:09)
[2024-05-03] MEDS ORDERED: FENTANYL CITR 100 MCG/2 ML ONE ×2 (11:10→11:28)
[2024-05-03] MEDS ORDERED: propofoL 200 MG/20 ML VIAL IV ONE (11:10)
[2024-05-03] MEDS ORDERED: MIDAZOLAM HCL 2 MG/2 ML INJ ONE (11:10)
[2024-05-03] MEDS ORDERED: KETOROLAC 30 MG/ML INJ ONE (11:27)
[2024-05-03] MEDS ORDERED: dexAMETHasone 10 MG/ML VIAL ONE (11:27)
[2024-05-03] MEDS ORDERED: EPHEDRINE SULF 50 MG/ML VIAL ONE (11:30)
[2024-05-03] MEDS ORDERED: Ringers Lactate 1,000 ML IV ONE (12:38)
--- NOTE | 2024-05-03 12:55 | P.BOP ---
Preoperative diagnosis: acute cholecystitis, symptomatic cholelithiasis Postoperative diagnosis: same Primary procedure: Laparoscopic cholecystectomy Integration Specialist: Vandana Corado (Candace) Estimated blood loss: <10cc Specimen: gb Findings: distender edematous GB Anesthesia: General Complications: None Transferred to: Recovery Room Condition: Good
[2024-05-03 13:10] VITALS: O2SAT 95
[2024-05-03] MEDS: HYDROCODONE/APAP 5/325 MG TAB PO PRN (15:35)
--- NOTE | 2024-05-03 16:10 | OP ---
Date of Procedure: 05/03/2024 Surgeon: Yahir Ray MD Esthetician Facialist: CHELA Che. Preoperative Diagnoses: Acute cholecystitis, symptomatic cholelithiasis. Postoperative Diagnoses: Acute cholecystitis, symptomatic cholelithiasis. Procedure: Laparoscopic cholecystectomy Estimated Blood Loss: Less than 10 cc. Specimen: Gallbladder. Finding: Distended edematous gallbladder. Anesthesia: General plus local. Indications: This is a case of a 29-year-old patient who comes to us with above diagnoses. I fully explained the benefits, alternatives, and risks of laparoscopic possible open cholecystectomy, which include, but not limited to infection, bleeding, damage to adjacent structures, anesthesia complicati on, choledocholithiasis, bile leak, pancreatitis, LA, even . He also understands this may not r elieve his symptoms, he might need more than one surgical intervention. He understood, signed the co nsent. Description Of Procedure: The patient brought to the operating room, placed in supine position. Ane sthesia was induced without complication. Abdominal area was prepped and draped in the usual sterile fashion. Marcaine 0.5% was injected for local anesthetic followed by sharp incision of the skin in the periumbilical region. Incision was carried down to fascia, which was opened under direct vision. Peritoneum was encountered, opened under direct vision. Vicryl #1 placed inside the fascia. Hasso n trocar was carefully introduced. Pneumoperitoneum was obtained. Immediately, we noticed distended tense gallbladder. I placed 5 mm trocars, 3 of them in the right upper quadrant under direct visual ization, and through one of them, we placed an Endo needle under direct visualization and punctured t he gallbladder and deflated the gallbladder partially. Needle was removed from abdominal cavity unde r direct visualization and a grasper was placed in the fundus of the gallbladder, another grasper in infundibulum, retracting the gallbladder in inferolateral fashion exposing the triangle of Calot, obt aining critical view. Multiple adhesions and inflammation in that area. We removed those adhesions with the help of LigaSure. Then, after that, we identified the cystic duct and cystic artery, they w ere isolated circumferentially and a connection between those and the gallbladder was clearly identif ied. I proceeded to ligate the cystic duct first by using at least 3 clips proximal, 1 clip distally , ligation in middle. Same was done with the cystic artery. No bile leak, no bleeding. The gallbla dder was removed from liver using Bovie cauterizer and removed from abdominal cavity using EndoCatch through the umbilical incision. The area was inspected once again. No bile leak. No bleeding. At that moment, I proceeded to remove the trocars under direct vision. Deflated the pneumoperitoneum. Closed the fascia with #1 Vicryl. Irrigated subcutaneous tissue, closed that with 3-0 chromic and sk in with pina. Sponge count, instrument counts correct. The patient tolerated the procedure well, the patient sent to recovery in stable condition. GLADIS/ASHLEY Voice ID: [id number] Report ID: [id number]
[2024-05-03 16:27] VITALS: BP 119/67; TEMP 98
--- NOTE | 2024-05-03 16:42 | P.DS ---
Admission Date: 05/01/24 Discharge Date: 05/03/24 Disposition: ROUTINE DISCHARGE Discharge Condition: GOOD Reason for Admission: Cholelithiasis Brief History of Present Illness: 29-year-old male with no significant past medical history, presents to the emergency room with abdominal pain, nausea vomiting. He reported symptoms got worse last night after eating [employer]. He reports symptoms worse with food intake, reports some improvement with IV analgesics. He reports a history of similar symptoms that resolved. He denies fever, chills, ER evaluation blood pressure 173/109, heart rate 75, respirations 17 afebrile, 97% on room air. Epigastric pain is 9 out of 10, abdominal ultrasound Extensive gallbladder sludge and stones is present. Plan to admit for abdominal pain, acute cholelithiasis without obstruction with surgery to consult. - Physical Exam General: Alert, Oriented x3, HEENT: Atraumatic, Normocephalic Neck: Supple, 2+ carotid pulse no bruit Respiratory: Clear to auscultation bilaterally, Normal air movement Cardiovascular: Normal pulses, Regular rate/rhythm, Normal S1 S2 Capillary refill: <2 Seconds Gastrointestinal: Normal bowel sounds, Tenderness Musculoskeletal: No swelling, No tenderness Integumentary: No breakdown, No significant lesion Neurological: Normal speech, Normal strength at 5/5 x4 extr, Cranial nerves 3-12 intact Hospital Course: 29-year-old male with no significant past medical history, presents to the emergency room with abdominal pain, nausea vomiting. He reported symptoms got worse last night after eating [employer]. He reports symptoms worse with food intake, reports some improvement with IV analgesics. He reports a history of similar symptoms that resolved. He denies fever, chills, ER evaluation blood pressure 173/109, heart rate 75, respirations 17 afebrile, 97% on room air. Epigastric pain is 9 out of 10, abdominal ultrasound Extensive gallbladder slud ge and stones is present. Plan to admit for abdominal pain, acute cholelithiasis without obstruction with surgery to consult. He was evaluated by surgery, is status post laparoscopic acute cholecystectomy. By Dr. Ray. Tolerating diet, pain control, able to discharge, follow-up with surgery after discharge. No heavy lifting greater than 10 pounds after discharge Discharge home on p.o. antibiotics, antiemetics, as needed analgesics, take as directed No heavy lifting greater than 10 pounds, Follow-up with Dr. Ray after discharge Assessment Acute cholelithiasis without obstruction- 05/03 status post laparoscopic acute cholecystectomy. By Dr. Ray. Acute cholecystitis Abdominal pain nausea vomiting Hypertension urgency, treated with p.o. antihypertensive-keep blood pressure log, follow-up with blood pressure log. BP 119 at discharge, no PO HTN meds at [facility] GOAL: Clear understanding of disease process INSTRUCTIONS: Physician Discharge Instructions: -Follow-up with Dr. Ray after discharge -Follow-up with PCP in 1 to 2 weeks -Please call Dr. Chowdhury at [phone] if any questions regarding hospital stay -Please call nursing station at [phone] if any nursing or medication questions -Return to the emergency room if symptoms worsen Diet: ADA, low sodium Activity: Fall precautions Vital Signs/Physical Exam: Temp Pulse Resp BP Pulse Ox 98 F 68 16 119/67 91 05/03/24 16:00 05/03/24 16:00 05/03/24 16:00 05/03/24 16:00 05/03/24 16:00 Laboratory Data at Discharge: WBC 10.90 thou/uL (4.3-10.9) 05/02/24 04:01 Hgb 14.5 g/dL (13.6-17.9) 05/02/24 04:01 Hct 41.8 % (39.6-49.0) 05/02/24 04:01 Plt Count 302 thou/uL (152-406) 05/02/24 04:01 Sodium 139 mEq/L (136-145) 05/02/24 04:01 Potassium 3.5 mEq/L (3.5-5.1) 05/02/24 04:01 BUN 7 mg/dL (7-18) 05/02/24 04:01 Creatinine 0.95 mg/dL (0.70-1.30) 05/02/24 04:01 Glucose 118 mg/dL (74-106) H 05/02/24 04:01 Magnesium 2.0 mg/dL (1.6-2.4) 05/02/24 04:01 Total Bilirubin 0.6 mg/dL (0.2-1.0) 05/02/24 04:01 AST 39 U/L (15-37) H 05/02/24 04:01 ALT 78 U/L (16-61) H 05/02/24 04:01 Alkaline Phosphatase 71 U/L (45-117) 05/02/24 04:01 Lipase 21 U/L (13-75) 05/01/24 07:53 Home Medications: Amox/Clavulanate [Augmentin 875-125 Tab] 1 each PO BID #14 tab 05/03/24 Hydrocodone 5/APAP 325 [[place] 5/325*] 1 tab PO Q6HP PRN #20 tab 05/03/24 New Medications: Amox/Clavulanate [Augmentin 875-125 Tab] 1 each PO BID #14 tab Hydrocodone 5/APAP 325 [[place] 5/325*] 1 tab PO Q6HP PRN #20 tab PRN Reason: Pain Scale 5-7 (Moderate) Physician Discharge Instructions: Keep surgical area dry for 48h then may remove outer dressing and shower. Apply antibiotic ointment and bandaid daily after. 29-year-old male with no significant past medical history, presents to the emergency room with abdominal pain, nausea vomiting. He reported symptoms got worse last night after eating [employer]. He reports symptoms worse with food intake, reports some improvement with IV analgesics. He reports a history of similar symptoms that resolved. He denies fever, chills, ER evaluation blood pressure 173/109, heart rate 75, respirations 17 afebrile, 97% on room air. Epigastric pain is 9 out of 10, abdominal ultrasound Extensive gallbladder sludge and stones is present. Plan to admit for abdominal pain, acute chol elithiasis without obstruction with surgery to consult. He was evaluated by surgery, is status post laparoscopic acute cholecystectomy. By Dr. Ray. Tolerating diet, pain control, able to discharge, follow-up with surgery after discharge. No heavy lifting greater than 10 pounds after discharge Discharge home on p.o. antibiotics, antiemetics, as needed analgesics, take as directed No heavy lifting greater than 10 pounds, Follow-up with Dr. Ray after discharge Assessment Acute cholelithiasis without obstruction- 05/03 status post laparoscopic acute cholecystectomy. By Dr. Ray. Acute cholecystitis Abdominal pain nausea vomiting Hypertension urgency, treated with p.o. antihypertensive-while inpatient, last blood pressure was 119/67 keep blood pressure log, follow-up with blood pressure log to primary care appointment after GOAL: Clear understanding of disease process INSTRUCTIONS: Physician Discharge Instructions: -Follow-up with Dr. Ray after discharge in 1 week -Follow-up with PCP in 1 to 2 weeks -Please call Dr. Chowdhury at [phone] if any questions regarding hospital stay -Please call nursing station at [phone] if any nursing or medication questi ons -Return to the emergency room if symptoms worsen Diet: ADA, low sodium Activity: Fall precautions Diet: Regular Activity: No lifting more than 10 lbs Followup: Yahir Ray MD [ACTIVE - CAN ADMIT] - 1 Week NONE,NONE [Primary Care Provider] - Time spent managing pt's care (in minutes): 45
== END 2024-05-03 18:30 | disposition home or self-care (01) | DRG 419 ==
LOC: ER 07:44 → ERHOLD 09:28 → 2ND 11:02 → OBSVTOIN 05-03 07:59
PROVIDERS: ADMIT Hospitalist; ATTEND Hospitalist
PROC: 0FT44ZZ Resection of Gallbladder, Percutaneous Endoscopic Approach (ICD-10-PCS; principal; 2024-05-03 11:16)
DX: K80.00 Calculus of gallbladder with acute cholecystitis without obstruction (principal); I10 Essential (primary) hypertension; I16.0 Hypertensive urgency
CPT/HCPCS: 36415; 76705; 80053; 81001; 83690; 83735; 85025; 88304; 94010; 96365; 96375; 99285; G0378; J1100; J1171; J2003; J2250; J2405; J2470; J2543; J2704; J2710; J3010; J3480; J7030; J7120